=== PATIENT | male | born 1945 | race Caucasian/White ===

== ENCOUNTER 2020-09-05 10:28 | Observation (INO) | payer MEDICARE, SELFPAY ==
[2020-09-05] VITALS (9 sets, daily range): BP systolic 163–199; BP diastolic 53–122; PULSE 63–107; RESP 18–20; TEMP 36.1–36.7; O2SAT 96–100; BMI 26.5; BMI 26.4
--- NOTE | ~2020-09-05 | CT_ITS ---
EXAMINATION: CT abdomen pelvis wo con DATE: 09/05/2020 11:35 INDICATION: Hematuria TECHNIQUE: Computed tomography (CT) of the abdomen and pelvis was performed without intravenous contr ast. The dose-length product was 609.56 mGy-cm. Automated exposure control and iterative reconstructi on technique were employed. COMPARISON: None. FINDINGS: Lung bases unremarkable. Borderline heart size. No significant pleural or pericardial effus ion. There are multiple left renal cysts. There is a large complex right renal mass containing coarse internal calcifications measuring 10.2 cm craniocaudal x9.3 cm transverse x6.4 cm AP. This mass is c ompatible with renal cell carcinoma until proven otherwise. There is a questionable 4.5 cm high density mass posterior base of the bladder, best seen on the sagi ttal reconstruction images, suspicious for transitional cell carcinoma. Mild prostate enlargement. No hydronephrosis or ureteral stone identified. Nonobstructive bowel gas pattern. The liver, spleen, pancreas, adrenal glands are unremarkable. There is moderate atherosclerosis witho ut aneurysm. Moderate lumbar spondylosis. No osteolytic or osteoblastic lesions. IMPRESSION: 1. Complex 10.2 cm right renal mass, compatible with renal cell carcinoma until proven otherwise. Rec [facility] urology consultation. 2: Possible 4.5 cm bladder mass. Consider transitional cell carcinoma. Reviewed, dictated and finalized at location A. NING HANDYMAN IMPRESSION: 1. Complex 10.2 cm right renal mass, compatible with renal cell carcinoma until proven otherwise. Recommend urology consultation. 2: Possible 4.5 cm bladder mass. Consider transitional cell carcinoma.
--- NOTE | ~2020-09-05 | CT_ITS ---
EXAMINATION: CT chest abdomen pelvis w con DATE: 09/05/2020 19:07 INDICATION: Renal mass TECHNIQUE: Computed tomography (CT) of the chest, abdomen, and pelvis was performed with 100 mL Omnip aque-350 intravenous contrast. Automated exposure control and iterative reconstruction technique were employed. The dose-length product was 876.95 mGy-cm. COMPARISON: Noncontrast CT of the abdomen and pelvis dated 09/05/2020 FINDINGS: CHEST CT: 8 mm subpleural nodule with ill-defined margins in the superior segment of the left lower lobe. Mild dependent atelectasis in the bilateral lower lobes. No other suspicious pulmonary nodules, pulmonary edema or pleural effusion. Cardiomegaly. Atherosclerotic coronary artery calcifications. No pericardi al effusion. Thoracic aorta is normal in caliber with no dissection. No pathologically enlarged thora cic lymphadenopathy. Mild thoracic spondylosis. No suspicious lytic or blastic bone lesions. ABDOMEN/PELVIS CT: Liver, gallbladder, pancreas and bilateral adrenal glands are normal. Splenic calcific calcification is consistent with old granulomatous disease. 4 simple appearing nonenhancing left renal cysts the la rgest measuring 6.0 cm. 10.4 x 6.4 x 11.4 cm heterogeneously enhancing exophytic mass with coarse internal calcifications and lobular margins which arises from the anterior aspect of the lower pole of the right kidney consiste nt with renal cell carcinoma. There is moderate perinephric stranding surrounding the right kidney al lula with multiple collateral draining pararenal veins which extend to the right gonadal vein. There i s a small accessory right renal artery extending to the lower pole of the right kidney as well as ear ly bifurcation near the origin of the dominant right renal artery. Similarly there is a small accesso ry right renal vein draining the lower pole and extending to the inferior vena cava one side the acce ssory renal artery. Gas and a Villarreal catheter within the decompressed bladder. Bowels including the appendix are normal. S mall bilateral fat-containing inguinal hernias. No free intraperitoneal gas or fluid. No pathological ly enlarged abdominal or pelvic lymphadenopathy. Mild to moderate lower lumbar spondylosis. A few sma ll sclerotic bone islands about the right acetabulum and one in the left femoral head. No suspicious lytic or blastic bone lesions. IMPRESSION: 1. 11.4 cm enhancing renal mass consistent with renal cell carcinoma. 2. Indeterminate 8 mm left lower lobe nodule which could be acute infectious/inflammatory, more chron ic granulomatous disease or primary lung cancer. Although somewhat given the absence of other lesions suspicious for metastatic disease are identified in the chest, abdomen or pelvis, the differential w ould include metastatic disease. In the absence of a known primary malignancy the typical recommendat ion would be for follow-up noncontrast chest CT in 3-6 months however given the presumptive renal kp l carcinoma would consider PET/CT for further evaluation and to assess for any other potential metast ases. Reviewed, dictated and finalized at location A. N MASTER IMPRESSION: 1. 11.4 cm enhancing renal mass consistent with renal cell carcinoma. 2. Indeterminate 8 mm left lower lobe nodule which could be acute infectious/in flammatory, more chronic granulomatous disease or primary lung cancer. Although somewhat given the absence of other lesions suspicious for metastatic disease are identified in the chest, abdomen or pelvis, the differential would include metastatic disease. In the absence of a known primary malignancy the typical re commendation would be for follow-up noncontrast chest CT in 3-6 months however given the presumptive renal cell carcinoma would consider PET/CT for further e
--- NOTE | 2020-09-05 11:03 | ECG_ITS ---
Measurements Intervals [place] Rate: 113 P: 3 CA: 152 QRS: -34 QRSD: 92 T: 5 QT: 334 QTc: 459 Interpretive Statements SINUS TACHYCARDIA FREQUENT VENTRICULAR PREMATURE COMPLEXES LEFT AXIS DEVIATION BORDERLINE R WAVE PROGRESSION, ANTERIOR LEADS BORDERLINE T WAVE ABNORMALITY- INFERIOR LEADS BASELINE ARTIFACT- I, II, III, AVR, AVF, V1, V3-V6 ABNORMAL ECG Electronically Signed On 09-05-2020 14:33:23 SALES DEVELOPMENT ASSOCIATE by Randolph Camp D.O.
[2020-09-05] MEDS: LORazepam INJ (*CRX) 2 MG/ML VIAL 1 MG IV PUSH (11:19)
[2020-09-05] MEDS: SODIUM CHLORIDE 0.9% IV 1,000 ML 999 ML IV CONT (11:19)
[2020-09-05 11:24] LABS: Basophils Percent Auto 0.2 % (0.2-1.2); Eosinophils Percent Auto 0.1 % (0-4.4); Hematocrit 48.4 % (42.0-52.0); Hemoglobin 16.9 g/dL (14.0-18.0); Immature Granulocyte Absolute 0.05 K/mm3 (0.00-0.031); Immature Granulocyte Percent A 0.4 % (0-0.5); Lymphocytes Percent Auto 10.4 % (18.3-44.2); Mean Corpuscular HGB Conc 34.9 g/dl (32-36); Mean Corpuscular Hemoglobin 32.7 pg (26-34); Mean Corpuscular Volume 93.6 fl (80-100); Monocytes Absolute Auto 0.8 K/mm3 (0.1-0.6); Monocytes Percent Auto 6.6 % (2.6-8.5); Neutrophils Absolute Auto 9.6 K/mm3 (1.3-6.7); Neutrophils Percent Auto 82.3 % (45.5-73.1); Platelet Count Result 303 k/mm3 (150-375); Red Blood Count 5.17 M/mm3 (4.6-6.20); Red Cell Distribution Width 11.6 % (11.5-14.5); White Blood Count 11.6 K/mm3 (4.5-10.0)
[2020-09-05 11:33] LABS: Prothrombin Time 13.4 Seconds (11.1-14.7)
[2020-09-05 11:34] LABS: Partial Thromboplastin Time 32.6 SECONDS (22.3-36.8)
[2020-09-05 11:38] LABS: Alanine Aminotransferase 26 U/L (4-50); Albumin Level 4.5 g/dL (3.5-5.1); Alkaline Phosphatase 95 U/L (38-126); Anion Gap 13 mmol/L (8-16); Aspartate Amino Transferase 38 U/L (17-59); Bilirubin,Total 1.2 mg/dL (0.2-1.3); Blood Urea Nitrogen 13 mg/dL (9-20); Calcium 9.2 mg/dL (8.4-10.2); Carbon Dioxide 24 mmol/L (22-30); Chloride 101 mmol/L (98-107); Estimated CRCL calculation 72 ml/min; Estimated Glomerular Filt Rate > 60; Glucose 143 mg/dL (75-110); Lipase 35 U/L (23-300); Potassium 3.7 mmol/L (3.4-5.0); Sodium 138 mmol/L (137-145)
[2020-09-05 11:39] LABS: Creatine Kinase 350 U/L (55-170)
[2020-09-05] MEDS: LABETALOL HCL INJ 100 MG/20 ML VIAL 20 MG IV PUSH (11:59)
[2020-09-05 12:20] LABS: Add Urine Microscopic? YES; Appearance Urine Cloudy (Clear); Bilirubin Urine Negative (Negative); Blood Urine 3+ (Negative); Color Urine Yellow (Yellow); Glucose Urine UA Negative (Negative); Ketones Urine Trace mg/dL (Negative); Leukocyte Esterase Ur Negative LEU/UL (Negative); Nitrate Urine Negative (Negative); Protein Urine 2+ mg/dL (Negative); RBC Urine >75 /hpf (0-2); Specific Grav Ur 1.017 (1.001-1.035); Urobilinogen Urine Negative mg/dL (<2.0); WBC Urine >75 /hpf
--- NOTE | 2020-09-05 14:06 | ED.GENADULT ---
HPI - General Adult General Chief complaint: Urogenital-Male <Alessandro García PA-C - Last Filed: 09/05/20 14:09> Stated complaint: hematuria <Alessandro García PA-C - Last Filed: 09/05/20 14:09> Time Seen by Provider: 09/05/20 10:56 <Alessandro García PA-C - Last Filed: 09/05/20 14:09> Source: patient and family <Alessandro García PA-C - Last Filed: 09/05/20 14:09> Mode of arrival: ambulatory <Alessandro García PA-C - Last Filed: 09/05/20 14:09> Limitations: no limitations <Alessandro García PA-C - Last Filed: 09/05/20 14:09> History of Present Illness HPI narrative: Patient 74-year-old male who presents to emergency department for evaluation of hematuria some bladder discomfort and difficulty with urination that started last night patient presents with continued dysuria hematuria patient denies any similar occurrence in the past injury trauma or recent illness has not taken anything for his symptoms is anxious noting he was up all night and discomfort <Alessandro García PA-C - Last Filed: 09/05/20 14:09> Related Data Home medications: Home Medications Medication Instructions Recorded Confirmed No Home Medications 09/05/20 09/05/20 <Alessandro García PA-C - Last Filed: 09/05/20 14:09> Allergies/adverse reactions: Allergies Allergy/AdvReac Type Severity Reaction Status Date / Time No Known Allergies Allergy Verified 09/05/20 11:09 <Alessandro García PA-C - Last Filed: 09/05/20 14:09> Review of Systems Review of Systems: All systems reviewed & are unremarkable except as noted in HPI and below <Alessandro García PA-C - Last Filed: 09/05/20 14:09> PMFSH Social History Social History: Social History (Updated 09/05/20 @ 14:06 by Alessandro García PA-C) Smoking status: Never smoker Gender identity (if verbalized by the patient): Male <Alessandro García PA-C - Last Filed: 09/05/20 14:09> Exam Narrative: Exam Narrative: GENERAL: Well-appearing, well-nourished, and in no acute distress. HEAD: Normocephalic, atraumatic. EYES: PERRLA and EOMI. ENT: Nares clear, no rhinorrhea or epistaxis. Mucous membranes moist. CHEST: Clear to auscultation. No respiratory distress. No wheezes rales or rhonchi HEART: Regular rate and rhythm. No murmur heard. Normal peripheral pulses. ABDOMEN: Soft, suprapubic tenderness to palpation, nondistended EXTREMITIES: Normal range of motion. No edema. SKIN: Warm, dry, no rash. NEURO: No focal deficits. Alert and oriented x3. PSYCH: Normal mood and affect. <Alessandro García PA-C - Last Filed: 09/05/20 14:09> Course Course Emergency Course: Patient was evaluated in the emergency department found to have bladder and kidney mass will be placed in hospital for urological evaluation patient's blood pressure improved with labetalol was hydrated and also given urinary tract infection coverage with Rocephin patient hemodynamically stable resting comfortably agreeing to stay in hospital <Alessandro García PA-C - Last Filed: 09/05/20 14:09> BLASTING COAL MINER/PA Physician Supervision For this patient encounter, I reviewed the BLASTING COAL MINER or PA documentation, treatment plan, and medical decision making; and I had [id number] time with this patient. <Liliana Lay MD - Last Filed: 09/05/20 14:37> Consultations Consultation #1: Discussed case with urology who will consult on patient as well as the hospitalist who has agreed to accept the patient <Alessandro García PA-C - Last Filed: 09/05/20 14:09> Date: 09/05/20 <JULIENNE Hernandez Last Filed: 09/05/20 14:09> Time: 14:07 <JULIENNE Hernandez Last Filed: 09/05/20 14:09> Vital Signs Vital signs: Vital Signs Temperature 36.6 C 09/05/20 10:50 Pulse Rate 63 09/05/20 10:50 Respiratory Rate 18 09/05/20 10:50 Blood Pressure 194/122 H 09/05/20 10:50 Pulse Oximetry 100 09/05/20 10:50 Temperature 36.6 C 09/05/20 10:50 Pulse Rate 7
--- NOTE | 2020-09-05 14:52 | WPDURCON ---
Assessment and Plan Assessment and plan (1) Hematuria: Code(s): R31.9 - Hematuria, unspecified Status: Acute Assessment and Plan: 74 yo male with painless GH, ? bladder mass and CT concerning for possible 10 cm right RCC #1 GH likely from large renal mass plan to re-image, stage chest We will send urine cytology he will need cystoscopy to assess bladder, however I suspect the bladder mass is just dependent blood products in the bladder We will continue CBI and titrate to clear Keep NPO I will inform my associates of his admission. Thank you for the consultation if any questions or concerns arise please don't hesitate to contact me (2) Bladder mass: Code(s): N32.89 - Other specified disorders of bladder Status: Acute (3) Kidney mass: Code(s): N28.89 - Other specified disorders of kidney and ureter Status: Acute Assessment and Plan: Plan to image with contrast to assess or infiltrative mass and evaluate IVC/vasculature He will need staging with Chest CT Pt understands that this is likely a kidney cancer and he will likely need nephrectomy when acute issues resolve Urology Consult Note HPI Date Seen: 09/05/20 Requesting Physician: Siddharth Em MD Primary Care Provider: US MARKETING DIRECTOR PHYSICIAN Consult Narrative Narrative: John Dickey is a 74 year old male with no significant medical history who presented to the ED with 24 hour history of painless gross hematuria. He was passing small clots. No trauma. Nonsmoker. No history of prior hematuria or UTI. 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 He is visiting from [place]. he denies prior irritative or obstructive symptoms. Takes no blood thinners. He does drink ETOH. He had CT of A/P which shows large 10cm right renal mass and ? mass in bladder. 3 way braden was inserted and CBI was initiated which cleared his urine. Review of Systems Constitutional: Constitutional: Reports no additional constitutional complaints, Denies fever(s), Denies snoring and Denies weakness Eyes: Eyes: Reports no additional eye complaints ENT: Reports system reviewed and no additional complaints, except as documented, Denies dysphagia, Denies dizziness, Denies dry mouth and Denies ear discharge Respiratory: Respiratory: Reports no additional respiratory complaints, Denies hemoptysis, Denies snoring and Denies wheezing Gastrointestinal: Gastrointestinal: Reports as per HPI, Reports no additional gastrointestinal complaints, Denies dysphagia, Denies loose stools and Denies nausea Genitourinary: Genitourinary: Reports no additional male genitourinary complaints and Reports as per HPI Musculoskeletal: Musculoskeletal: Reports no additional musculoskeletal complaints and Reports as per HPI Integumentary/Breasts: Skin/Breast: Reports system reviewed and no additional complaints, except as docu and Reports as per HPI Neurologic: Reports system reviewed and no additional complaints, except as documented, Reports as per HPI, Denies confusion, Denies dizziness, Denies memory loss and Denies weakness Psychiatric: Psychiatric: Reports no additional psychiatric complaints, Reports as per HPI, Denies confusion, Denies memory loss and Denies mood swings Endocrine: Endocrine: Reports no additional endocrine complaints Hematologic/Lymphatic: Hematologic/Lymphatic: Reports no additional hematologic/lymphatic complaints and Reports as per HPI Allergic/Immunologic: Allergic/Immunologic: Reports no additional allergic/immunologic complaints, Reports as per HPI and Denies wheezing PMFSH Social History Social History (Updated 09/05/20 @ 14:06 by Alessandro García PA-C) Smoking status: Never smoker Gender identity (if verbalized by the patient): Male Meds Home Medications and Allergies Home Medications Medication Instructions Recorded Confirmed Type No Home Medications 09/05/20 09/05/20 History Allergies Allergy/AdvReac T
--- NOTE | 2020-09-05 14:57 | PC.NURSE ---
This patient, John Dickey, was admitted to Medical Room 341-01. Patient/family oriented to hospital policies and general routines including ID bracelet, bed and alarms, visiting hours, pain management, procedures, bathroom and other care routines, personal items, smoking policy, room service/diet, and visiting hours. Information on how to activate the Rapid Response Team has been discussed. Patient/Family are encouraged to report perceived risks to care and to ask questions if they do not understand what they are told or what they should do.
[2020-09-05] MEDS: LACTATED RINGERS 1,000 ML 125 ML IV CONT ×2 (15:30→23:34)
--- NOTE | 2020-09-05 17:43 | PM.IMHP ---
H&P: HPI History of Present Illness Date/Time: 09/05/20 17:43 Chief complaint: Hematuria/bladder mass/kidney mass/uti Narrative: John Dickey is a 74 year old male who has no past medical history. The patient stated that he has not had any kidney problems or bladder problems. He said when before he turned 69 had his prostate checked and it was okay. He is not on any medication for a any medical problems. The patient stated that yesterday he was having difficulty urinating. He said he had to push on his suprapubic area to get the urine to come out. Of hematuria and some discomfort difficulty urinating. He has not had any injury or trauma. He is pretty anxious when he came to the emergency room. His blood pressure initially was 194/122. And it did come down to 163/97. The patient was given labetalol in the emergency room. Urology has been consulted has already seen the patient. Was read by radiology is a complex 10.2 cm right renal mass, compatible with renal cell carcinoma until proven otherwise. Recommend urology consult. Possible 4.5 cm bladder mass. Consider transitional cell carcinoma. The patient is quite anxious about things., he was given Ativan, Rocephin and labetalol. Patient is being admitted into observation status on date of service 09/05/2020 Review of Systems Review of Systems: All systems reviewed & are unremarkable except as noted in HPI and below Constitutional: Constitutional: Reports as per HPI and Reports no additional constitutional complaints Eyes: Eyes: Reports as per HPI and Reports no additional eye complaints ENT: Reports system reviewed and no additional complaints, except as documented and Reports Normal hearing present Cardiovascular: Cardiovascular: Reports no additional cardiovascular complaints Respiratory: Respiratory: Reports no additional respiratory complaints and Reports no additional respiratory complaints Gastrointestinal: Gastrointestinal: Reports as per HPI and Reports no additional gastrointestinal complaints Musculoskeletal: Musculoskeletal: Reports no additional musculoskeletal complaints Integumentary/Breasts: Skin/Breast: Reports system reviewed and no additional complaints, except as docu and Reports as per HPI Neurologic: Reports system reviewed and no additional complaints, except as documented, Reports as per HPI and Reports Normal hearing present Psychiatric: Psychiatric: Reports no additional psychiatric complaints and Reports as per HPI Endocrine: Endocrine: Reports no additional endocrine complaints Hematologic/Lymphatic: Hematologic/Lymphatic: Reports no additional hematologic/lymphatic complaints Allergic/Immunologic: Allergic/Immunologic: Reports no additional allergic/immunologic complaints [facility] Surgical History Surgical History (Updated 09/05/20 @ 17:47 by Brisa Betancur NP) History of colonoscopy S/P tonsillectomy and adenoidectomy Family History Family History (Updated 09/05/20 @ 17:47 by Brisa Betancur NP) Father Industrial accident an industrial accident Other No active medical problems Social History Social History (Updated 09/05/20 @ 17:48 by Brisa Betancur NP) Social History: The patient has 1 biological daughter. He is retired. He has maybe 3 or 4 glasses of beer a week. He goes the [facility] to watch football game on Sundays. Lifelong nonsmoker. He does have a significant other. No marijuana or illicit drugs. The patient desires to be a full code and does not have a durable power divorce attorney in writing but would like for his daughter do be his power divorce attorney. He is . He is initially from [place]. Smoking status: Never smoker Alcohol intake: current Drinks per week: 6 Substance use: never Gender identity (if verbalized by the patient): Male Spiritual care concerns: No Meds Home Medications and Allergies Home Medications Medication Instructions Recorded Confirmed Type No Cleo
[2020-09-05 19:20] LABS: Hematocrit 47.9 % (42.0-52.0); Hemoglobin 16.6 g/dL (14.0-18.0)
[2020-09-05] MEDS: hydrALAZINE HCL 20 MG/ML VIAL 10 MG IV PUSH (20:56)
[2020-09-05] MEDS: FAMOTIDINE 20 MG/2 ML VIAL IV PUSH (20:56)
[2020-09-05 23:32] LABS: Hematocrit 45.7 % (42.0-52.0); Hemoglobin 15.9 g/dL (14.0-18.0)
[2020-09-06 05:36] VITALS: BP 174/81; PULSE 78; RESP 18; TEMP 36.7; O2SAT 97
[2020-09-06 05:48] LABS: Basophils Percent Auto 0.2 % (0.2-1.2); Eosinophils Percent Auto 0.1 % (0-4.4); Hematocrit 47.1 % (42.0-52.0); Hemoglobin 16.3 g/dL (14.0-18.0); Immature Granulocyte Absolute 0.08 K/mm3 (0.00-0.031); Immature Granulocyte Percent A 0.6 % (0-0.5); Lymphocytes Absolute Auto 1.13 K/mm3 (0.9-3.2); Lymphocytes Percent Auto 7.8 % (18.3-44.2); Mean Corpuscular HGB Conc 34.6 g/dl (32-36); Mean Corpuscular Hemoglobin 32.7 pg (26-34); Mean Corpuscular Volume 94.4 fl (80-100); Mean Platelet Volume 10.1 fl (7.4-10.4); Monocytes Absolute Auto 1.2 K/mm3 (0.1-0.6); Monocytes Percent Auto 8.3 % (2.6-8.5); Neutrophils Absolute Auto 12.1 K/mm3 (1.3-6.7); Platelet Count Result 294 k/mm3 (150-375); Red Blood Count 4.99 M/mm3 (4.6-6.20); Red Cell Distribution Width 11.7 % (11.5-14.5); White Blood Count 14.5 K/mm3 (4.5-10.0)
[2020-09-06 06:06] LABS: Alanine Aminotransferase 25 U/L (4-50); Albumin Level 4.2 g/dL (3.5-5.1); Alkaline Phosphatase 89 U/L (38-126); Anion Gap 11 mmol/L (8-16); Aspartate Amino Transferase 37 U/L (17-59); Bilirubin,Total 1.5 mg/dL (0.2-1.3); Blood Urea Nitrogen 12 mg/dL (9-20); CRP 1.1 mg/dL (<1.0); Calcium 9.1 mg/dL (8.4-10.2); Carbon Dioxide 24 mmol/L (22-30); Chloride 103 mmol/L (98-107); Estimated CRCL calculation 66 ml/min; Estimated Glomerular Filt Rate > 60; Glucose 130 mg/dL (75-110); Lactate Dehydrogenase 285 U/L (313-618); Potassium 3.9 mmol/L (3.4-5.0); Sodium 138 mmol/L (137-145)
--- NOTE | 2020-09-06 06:21 | WPDUROPN2 ---
Progress Note: A&P Assessment and Plan (1) Hematuria: Code(s): R31.9 - Hematuria, unspecified Status: Acute (2) Kidney mass: Code(s): N28.89 - Other specified disorders of kidney and ureter Status: Acute Assessment and Plan: CT-chest/abd/pelvis c/w 12cm right renal cell ca. with indeterminate 8mm pulmonary nodule. Additional staging with PET/CT should be considered at some point. Hematuria much improved this morning. Will see if we can get cystoscopy scheduled in OR today. Eventually, pt. will likely return home to [place] for definitive mgmt. of renal mass. Subjective Subjective Date/Time Seen: 09/06/20 06:21 Comfortable, urine clear on slow CBI Review of Systems Cardiovascular: Cardiovascular: Denies chest pain, Denies lightheadedness, Denies palpitations and Denies dyspnea Respiratory: Respiratory: Denies dyspnea Gastrointestinal: Gastrointestinal: Denies diarrhea, Denies nausea and Denies vomiting Genitourinary: Genitourinary: Denies hematuria and Denies dysuria Endocrine: Endocrine: Denies palpitations Exam Const: General: no acute distress Resp: Effort & Inspection: normal respiratory effort GI: Inspection: non-distended GI Palp: No abdominal tenderness and No Guarding due to palpation present (GI) Auscultation: normal bowel sounds Objective Data Vital Signs Vital Signs: Vital Signs - 24 hr 09/05/20 10:50 09/05/20 12:00 09/05/20 12:35 Temperature 98 F Pulse Rate 63 107 H 72 Respiratory Rate 18 19 18 Blood Pressure 194/122 H 199/116 H 170/96 H Pulse Oximetry 100 97 98 09/05/20 12:51 09/05/20 14:43 09/05/20 15:17 Temperature 97.0 F L Pulse Rate 74 76 76 Respiratory Rate 20 20 20 Blood Pressure 163/97 H 172/107 H 188/78 H Pulse Oximetry 97 99 100 09/05/20 16:00 09/05/20 18:24 09/05/20 19:37 Temperature 98.1 F Pulse Rate 89 86 Respiratory Rate 18 Blood Pressure 166/53 H 174/98 H Pulse Oximetry 96 09/06/20 05:36 Temperature 98.1 F Pulse Rate 78 Respiratory Rate 18 Blood Pressure 174/81 H Pulse Oximetry 97 Intake/Output Intake/Output: Intake & Output 09/03/20 09/04/20 09/05/20 09/06/20 23:59 23:59 23:59 23:59 Intake Total 2050 200 Output Total 7200 Balance -5150 200 Meds/Results Medications: Active Medications Generic Name Dose Route Start Last Admin Trade Name Freq PRN Reason Stop Dose Admin Famotidine 20 mg 09/05/20 21:00 09/05/20 20:56 Famotidine 20 Mg/2 Ml Vial IV PUSH 20 mg Q12HR GARO Administration Hydralazine HCl 10 mg 09/05/20 17:41 09/05/20 20:56 Hydralazine Hcl 20 Mg/Ml Vial IV PUSH 10 mg Q8H PRN Administration Blood Pressure - High Acetaminophen 1,000 mg in 100 mls @ 400 mls/hr 09/05/20 14:03 Ofirmev 1,000 Mg Ivpb IVPB 09/06/20 14:04 Q6H PRN Mild Pain (1-3) or Fever Lactated Ringer's 1,000 mls @ 125 mls/hr 09/05/20 14:05 09/05/20 23:34 Lr - Lactated Ringers Iv IV CONT 125 mls/hr .Q8H GARO Administration Lorazepam 0.5 mg 09/05/20 17:37 Lorazepam Inj (*Crx) 2 Mg/Ml Vial IV PUSH Q6H PRN Anxiety Ondansetron HCl 4 mg 09/05/20 14:03 Ondansetron Inj 4 Mg/2 Ml Vial IV PUSH Q4H PRN Nausea Radiology Results: ITS Impressions Abdomen/Pelvis CT 09/05/20 11:39 IMPRESSION: 1. Complex 10.2 cm right renal mass, compatible with renal cell carcinoma until proven otherwise. Recommend urology consultation. 2: Possible 4.5 cm bladder mass. Consider transitional cell carcinoma. Chest/Abdomen/Pelvis CT 09/05/20 19:46 IMPRESSION: 1. 11.4 cm enhancing renal mass consistent with renal cell carcinoma. 2. Indeterminate 8 mm left lower lobe nodule which could be acute infectious/inflammatory, more chronic granulomatous disease or primary lung cancer. Although somewhat given the absence of other lesions suspicious for metastatic disease are identified in the chest, abdomen or pelvis, the differential would include
--- NOTE | 2020-09-06 08:15 | PM.PROC ---
Procedure Note - Detailed Date of procedure: 09/06/20 Pre-op diagnosis: Hematuria/bladder mass/kidney mass/uti Post-op diagnosis: same Procedure performed: Flexible cystoscopy Description of procedure: Informed consents obtained. His Villarreal catheter is removed. I performed flexible cystoscopy. He had moderate trabeculation. There was some reddened areas with catheter-related edema. There are a few small less than 1 cm mobile clots. There was no bladder tumors noted. Prostate showed some lateral lobes. No median lobe. There were no other bladder abnormalities. Anesthesia: none Surgeon: Vincent Friedman MD Estimated blood loss (mL): 0 Drains: No Packing: No Pathology: none sent Complications: No immediate complications Condition: stable
[2020-09-06] MEDS: FAMOTIDINE 20 MG/2 ML VIAL IV PUSH (08:44)
[2020-09-06] MEDS: LACTATED RINGERS 1,000 ML 125 ML IV CONT (08:46)
[2020-09-06 11:45] LABS: Hemoglobin 15.5 g/dL (14.0-18.0)
--- NOTE | 2020-09-06 11:59 | PC.NURSE ---
Radiology disc sent home with patient.
--- NOTE | 2020-09-07 13:58 | PM.DS ---
DS: Admitting Diagnosis Admitting Diagnosis Admitting Diagnosis: Hematuria/bladder mass/kidney mass/uti DS: Discharge Diagnosis Discharge Diagnosis (1) Kidney mass: Code(s): N28.89 - Other specified disorders of kidney and ureter Status: Acute Assessment and Plan: build a mass in the right kidney measuring 10.2 x 11.3 cm suggestive of renal cell carcinoma.. Patient was seen by urology and will follow-up with urologist in [place] where he lives. (2) Bladder mass: Code(s): N32.89 - Other specified disorders of bladder Status: Acute Assessment and Plan: CT scan revealed what looked to be a 4.5 cm bladder mass, after continuous bladder irrigation cystoscopy was performed and revealed no mass chest few small clots which were mobile suggesting the regional masses probably a larger clock (3) Anxiety: Code(s): F41.9 - Anxiety disorder, unspecified Status: Acute Assessment and Plan: mild anxiety on admission treated with p.r.n. lorpam (4) Hematuria: Code(s): R31.9 - Hematuria, unspecified Status: Acute Assessment and Plan: hemoglobin remained stable. With continues bladder irrigation hematuria subsided and as above cystoscopy revealed no lesions in the bladder suggesting the hematuria was from the renal mass urine culture was no growth (5) Bladder obstruction: Code(s): N32.0 - Bladder-neck obstruction Status: Acute Assessment and Plan: felt secondary to clotting from the hematuria. No obstruction seen on cystoscopy and after CBI and Villarreal removal patient had no difficulty urinating (6) Hypertension: Code(s): I10 - Essential (primary) hypertension Status: Acute Assessment and Plan: P.r.n. hydralazine. patient has a history of hypertension and had discontinued his oral medications due to joint discomfort. Suggested he follow up again with his primary for further evaluation DS: Summary Hospital Course Hospital Course: 74-year-old hypertensive male admitted with hematuria and difficulty urinating period. CT revealed right renal mass and possible bladder mass. Cystoscopy after continues bladder irrigation revealed no mass with mild residual multiple clots. He had no further hematuria and no difficulty voiding after Villarreal catheter removed. Patient was seen by Nephrology and instructed to follow-up with a urologist in his home state of [place] he was given a disc of his imaging and reports to accompanying him. Urine culture was no growth. Time Spent with Patient Time attestation: Total time spent providing and/or coordinating discharge services:35 minutes Exam Narrative: Exam Narrative: condition on discharge blood pressure 170/80 pulse is 78 saturating 97% on room air afebrile lungs clear CV regular rate rhythm no murmurs abdomen soft nontender bowel sounds normal active extremities without edema distal pulses 2+ neuro alert no focal deficits up in about with Villarreal catheter removed and voiding without difficulty and no gross hematuria, stable for discharge home Discharge Plan Discharge Attending physician on discharge: Siddharth Em Consulting providers: Em Eisenberg ; Cisco Zapata ; Alessandro García Discharging Clinician: Siddharth Em Patient Disposition: Home, Self-Care Activity: as tolerated Diet: low sodium Discharge Instructions: follow up with your primary in [place] for urology referal Patient Instructions: Antibiotic Form, Hematuria (ED), Cystoscopy (DC) Stand Alone Forms: General Discharge Information Follow-up/Referrals: primary [Other] - Follow Up with Primary Dr Discharge Medications: No Action No Home Medications RF: 0 Date of admission: 09/05/20 14:31 Primary Care Provider: PHYSICIAN,SKIP PITMAN Admitting Provider: Siddharth Em Attending physician on admission: Siddharth Em Condition: Improved Qu
== END 2020-09-06 11:35 | disposition home or self-care (01) ==
LOC: ANHED 14:09 → ANH3MED 14:42
PROVIDERS: Emergency Medicine Emergency Medical Services; Nurse Practitioner; Admitting Provider Internal Medicine; Emergency Provider Emergency Medicine; Visit Provider Internal Medicine
DX: R31.9 Hematuria, unspecified (principal); N28.89 Other specified disorders of kidney and ureter; N32.89 Other specified disorders of bladder; N32.0 Bladder-neck obstruction; I10 Essential (primary) hypertension; R91.8 Other nonspecific abnormal finding of lung field
CPT/HCPCS: 52000; 36415; 71260; 74176; 74177; 80053; 81001; 82550; 83615; 83690; 84443; 85014; 85018; 85025; 85610; 85730; 86140; 86850; 86900; 86901; 87086; 93005; 96361; 96365; 96375; 96376; 99285; G0378; J0360; J0696; J2060; J7030; J7120; Q9967

== ENCOUNTER 2020-09-09 10:56 | Emergency (ER) | payer MEDICARE, SELFPAY ==
--- NOTE | ~2020-09-09 | US_ITS ---
EXAMINATION: US pelvic limited DATE: 09/09/2020 12:07 INDICATION: Hematuria. Difficulty voiding. TECHNIQUE: Multiple transabdominal and endovaginal sonographic images of the pelvis were obtained. COMPARISON: None. FINDINGS: There is a 6 x 3.3 x 4.9 cm hypoechoic filling defect with irregular margins within the bladder. The lesion demonstrates no internal flow on color Doppler and changes position between the supine and lef t lateral decubitus imaging consistent with a mobile clot. Bladder is otherwise unremarkable with nor mal wall thickness and smooth mucosal contour. IMPRESSION: 1. 6 x 3.3 x 4.9 cm mobile clot within the bladder. Reviewed, dictated and finalized at location A. [facility] [employer]
[2020-09-09 11:04] VITALS: BP 164/110; PULSE 111; RESP 18; TEMP 36.1; O2SAT 98
[2020-09-09 12:26] LABS: Basophils Percent Auto 0.3 % (0.2-1.2); Eosinophils Percent Auto 0.1 % (0-4.4); Hematocrit 44.7 % (42.0-52.0); Hemoglobin 15.8 g/dL (14.0-18.0); Immature Granulocyte Absolute 0.06 K/mm3 (0.00-0.031); Immature Granulocyte Percent A 0.4 % (0-0.5); Lymphocytes Absolute Auto 1.01 K/mm3 (0.9-3.2); Lymphocytes Percent Auto 6.5 % (18.3-44.2); Mean Corpuscular HGB Conc 35.3 g/dl (32-36); Mean Corpuscular Hemoglobin 32.4 pg (26-34); Mean Corpuscular Volume 91.6 fl (80-100); Monocytes Absolute Auto 1.5 K/mm3 (0.1-0.6); Monocytes Percent Auto 9.6 % (2.6-8.5); Neutrophils Percent Auto 83.1 % (45.5-73.1); Platelet Count Result 292 k/mm3 (150-375); Red Blood Count 4.88 M/mm3 (4.6-6.20); Red Cell Distribution Width 11.2 % (11.5-14.5); White Blood Count 15.6 K/mm3 (4.5-10.0)
[2020-09-09 12:37] LABS: Anion Gap 10 mmol/L (8-16); Blood Urea Nitrogen 14 mg/dL (9-20); Carbon Dioxide 27 mmol/L (22-30); Chloride 97 mmol/L (98-107); Estimated CRCL calculation 53 ml/min; Estimated Glomerular Filt Rate > 60; Glucose 130 mg/dL (75-110); Potassium 3.6 mmol/L (3.4-5.0); Sodium 134 mmol/L (137-145)
[2020-09-09 12:52] LABS: Add Urine Microscopic? YES; Appearance Urine Cloudy (Clear); Bilirubin Urine Negative (Negative); Blood Urine 3+ (Negative); Color Urine Red (Yellow); Glucose Urine UA Negative (Negative); Ketones Urine Negative (Negative); Leukocyte Esterase Ur Negative LEU/UL (Negative); Mucus Urine Heavy /lpf; Nitrate Urine Negative (Negative); Protein Urine 2+ mg/dL (Negative); RBC Urine >75 /hpf (0-2); Specific Grav Ur 1.008 (1.001-1.035); Urobilinogen Urine Negative mg/dL (<2.0); WBC Urine >75 /hpf
[2020-09-09] MEDS: LIDOCAINE HCL 2% GEL UROJET 10 ML PKG (12:56)
--- NOTE | 2020-09-09 13:42 | ED.GENADULT ---
HPI - General Adult General Chief complaint: Urogenital-Male Stated complaint: urinary retention Time Seen by Provider: 09/09/20 11:24 Source: patient, family and old records reviewed Mode of arrival: ambulatory Limitations: no limitations History of Present Illness HPI narrative: Patient 74-year-old male who presents with hematuria and dysuria that began over the last night had recent hospitalization found to have kidney mass patient was evaluated by urology sent home without a catheter and is now requesting to have 1 patient has not facilitated his follow-up with urology as he was still determining whether or not he was going to stay in [place] or return to [place] patient has now decided that he will stay in [place] and would like urology referral and catheter patient denies any fever chills nausea vomiting or other complaints and on arrival does not appear to be in distress or uncomfortable Related Data Allergies Allergy/AdvReac Type Severity Reaction Status Date / Time No Known Allergies Allergy Verified 09/09/20 11:07 Review of Systems Review of Systems: All systems reviewed & are unremarkable except as noted in HPI and below PMFSH Surgical History Surgical History History of colonoscopy S/P tonsillectomy and adenoidectomy Family History Family History (Updated 09/05/20 @ 17:47 by Brisa Betancur NP) Father Industrial accident an industrial accident Other No active medical problems Social History Social History Social History: The patient has 1 biological daughter. He is retired. He has maybe 3 or 4 glasses of beer a week. He goes the [employer] [employer] to watch football game on Sundays. Lifelong nonsmoker. He does have a significant other. No marijuana or illicit drugs. The patient desires to be a full code and does not have a durable power insurance attorney in writing but would like for his daughter do be his power insurance attorney. He is . He is initially from [place]. Smoking status: Never smoker Alcohol intake: current Drinks per week: 6 Substance use: never Gender identity (if verbalized by the patient): Male Spiritual care concerns: No Exam Narrative: Exam Narrative: GENERAL: Well-appearing, well-nourished, and in no acute distress. HEAD: Normocephalic, atraumatic. EYES: PERRLA and EOMI. ENT: Nares clear, no rhinorrhea or epistaxis. Mucous membranes moist. CHEST: Clear to auscultation. No respiratory distress. No wheezes rales or rhonchi HEART: Regular rate and rhythm. No murmur heard. Normal peripheral pulses. ABDOMEN: Soft, nontender, nondistended EXTREMITIES: Normal range of motion. No edema. SKIN: Warm, dry, no rash. NEURO: No focal deficits. Alert and oriented x3. PSYCH: Normal mood and affect. Course Course Emergency Course: Patient in the room no distress aware of case findings treatment plan diagnosis will be discharged home with Villarreal catheter aware of discussion with urology and plans to follow-up in 1 week. Patient will be placed on antibiotics. Patient hemodynamically stable ABCs intact and stable and given reasons to return Consultations Consultation #1: Discussed case with urology who will follow the patient outpatient this in 1 week would like Villarreal catheter left in place and to be treated with antibiotics with urine culture Date: 09/09/20 Time: 13:47 Vital Signs Vital signs: Vital Signs Temperature 97.0 F L 09/09/20 11:04 Pulse Rate 111 H 09/09/20 11:04 Respiratory Rate 18 09/09/20 11:04 Blood Pressure 164/110 H 09/09/20 11:04 Pulse Oximetry 98 09/09/20 11:04 Temperature 97.0 F L 09/09/20 11:04 Pulse Rate 111 H 09/09/20 11:04 Respiratory Rate 18 09/09/20 11:04 Blood Pressure 164/110 H 09/09/20 11:04 Pulse Oximetry 98 09/09/20 11:04 Medical Decision Making MDM Narrative Medical decision making narrative:
--- NOTE | 2020-09-09 14:30 | PC.NURSE ---
conversation had with pt and family regarding pts prior diagnosis of probable kidney cancer and need for immediate urology follow up. dr. harrison at bedside. [facility] to contact pt regarding scheduling nephrectomy.
[2020-09-09 14:43] VITALS: BP 155/86; PULSE 97; RESP 19; O2SAT 97
== END 2020-09-09 14:46 | disposition home or self-care (01) ==
PROVIDERS: Emergency Medicine Emergency Medical Services; Emergency Provider Emergency Medicine
DX: N39.0 Urinary tract infection, site not specified (principal); R31.9 Hematuria, unspecified
CPT/HCPCS: 36415; 76857; 80048; 81001; 85025; 87086; 99284

== ENCOUNTER 2020-10-08 15:31 | Emergency (ER) | payer MEDICARE, SELFPAY ==
[2020-10-08] VITALS (9 sets, daily range): BP systolic 99–152; BP diastolic 61–82; PULSE 97–115; RESP 16–22; TEMP 36.4; O2SAT 96–99
--- NOTE | 2020-10-08 15:58 | ECG_ITS ---
Measurements Intervals [place] Rate: 147 P: 39 SC: 154 QRS: -19 QRSD: 90 T: 67 QT: 299 QTc: 468 Interpretive Statements MULTIFOCAL ATRIAL TACHYCARDIA ATRIAL TRIPLETS AND ATRIAL PREMATURE COMPLEXES POOR R WAVE PROGRESSION, ANTERIOR LEADS BORDERLINE ST ABNORMALITY- HIGH LATERAL LEADS ABNORMAL ECG Electronically Signed On 10-09-2020 7:19:34 DISEASE AND INSECT CONTROL BOSS by Randolph Camp D.O.
[2020-10-08 16:16] LABS: Basophils Percent Auto 0.1 % (0.2-1.2); Eosinophils Absolute Auto 0.1 K/mm3 (0-0.3); Eosinophils Percent Auto 0.5 % (0-4.4); Hematocrit 43.7 % (42.0-52.0); Hemoglobin 15.2 g/dL (14.0-18.0); Immature Granulocyte Absolute 0.06 K/mm3 (0.00-0.031); Immature Granulocyte Percent A 0.5 % (0-0.5); Lymphocytes Percent Auto 7.9 % (18.3-44.2); Mean Corpuscular HGB Conc 34.8 g/dl (32-36); Mean Corpuscular Hemoglobin 32.5 pg (26-34); Mean Corpuscular Volume 93.4 fl (80-100); Monocytes Absolute Auto 1.1 K/mm3 (0.1-0.6); Monocytes Percent Auto 9.6 % (2.6-8.5); Neutrophils Absolute Auto 9.3 K/mm3 (1.3-6.7); Neutrophils Percent Auto 81.4 % (45.5-73.1); Platelet Count Result 317 k/mm3 (150-375); Red Blood Count 4.68 M/mm3 (4.6-6.20); Red Cell Distribution Width 11.4 % (11.5-14.5); White Blood Count 11.4 K/mm3 (4.5-10.0)
[2020-10-08 16:26] LABS: Anion Gap 9 mmol/L (8-16); Blood Urea Nitrogen 33 mg/dL (9-20); Calcium 8.5 mg/dL (8.4-10.2); Carbon Dioxide 26 mmol/L (22-30); Chloride 90 mmol/L (98-107); Estimated CRCL calculation 42 ml/min; Estimated Glomerular Filt Rate 49; Glucose 163 mg/dL (75-110); Potassium 4.3 mmol/L (3.4-5.0); Sodium 125 mmol/L (137-145)
[2020-10-08] MEDS: SODIUM CHLORIDE 0.9% IV 1,000 ML 999 ML IV CONT (17:00)
--- NOTE | 2020-10-08 17:19 | PC.NURSE ---
PT UNWILLING TO HAVE CT SCAN OF HEAD PROVIDER AWARE,NNO
--- NOTE | 2020-10-08 17:21 | ED.DIZZY ---
HPI - Dizziness General Chief Complaint: Syncope Stated Complaint: post op- n/v Time Seen by Provider: 10/08/20 16:47 Source: patient Mode of arrival: ambulatory Limitations: no limitations History of Present Illness HPI Narrative: Patient is a 69-year-old male complaining of dizziness that started last night. Patient states that he has not been eating or drinking well after the surgery due to soreness in his throat and hard time keeping anything down. Patient had nephrectomy done at [facility] 3 days ago. He attributes his soreness of his throat from the intubation. Patient states he is able to drink liquids but having a hard time eating solids due to nausea. Patient states that he could be dizzy because he has not been eating and drinking well, so when he called his surgeon, was advised to go to the emergency room for IV fluid treatment. Patient denies any near-syncope, syncopal episodes. Patient denies any headache, speech or visual disturbance, weakness, numbness, chest pain, shortness of breath, abdominal pain, vomiting, fever or chills. Related Data Allergies Allergy/AdvReac Type Severity Reaction Status Date / Time No Known Allergies Allergy Verified 09/09/20 11:07 Review of Systems Review of Systems: All systems reviewed & are unremarkable except as noted in HPI and below Constitutional: Constitutional: Denies body ache(s), Denies chills, Denies excessive sweating, Denies fatigue, Denies fever(s), Denies headache(s), Denies lethargy, Denies malaise, Denies weakness and Denies weight loss Eyes: Eyes: Denies blurry vision, Denies change in vision and Denies loss of vision ENT: Denies ear discharge, Denies headache(s), Denies lip swelling, Denies epistaxis, Denies nasal congestion, Denies neck pain, Denies throat swelling and Denies tongue swelling Cardiovascular: Cardiovascular: Denies chest pain, Denies chest pain at rest, Denies chest pain with activity, Denies diaphoresis, Denies rapid heart rate, Denies edema, Denies irregular heart rhythm, Denies lightheadedness, Denies palpitations, Denies dyspnea and Denies dyspnea on exertion Respiratory: Respiratory: Denies chest congestion, Denies cough, Denies hemoptysis, Denies dyspnea and Denies dyspnea on exertion Gastrointestinal: Gastrointestinal: Denies abdominal pain, Denies melena, Denies hematochezia, Denies diarrhea, Denies vomiting and Denies hematemesis Musculoskeletal: Musculoskeletal: Denies abnormal gait, Denies deformity, Denies joint swelling, Denies limited range of motion, Denies neck pain and Denies numbness Neurologic: Denies Abnormal speech present, Denies abnormal gait, Denies confusion, Denies headache(s), Denies focal weakness, Denies loss of vision, Denies numbness, Denies Other visual disturbances, Denies Sensory deficit (Neuro) and Denies weakness Psychiatric: Psychiatric: Denies confusion, Denies depression, Denies auditory hallucinations, Denies homicidal ideation and Denies suicidal ideation Endocrine: Endocrine: Denies cold intolerance, Denies excessive sweating, Denies fatigue, Denies heat intolerance and Denies palpitations Hematologic/Lymphatic: Hematologic/Lymphatic: Denies easy bleeding and Denies easy bruising Allergic/Immunologic: Allergic/Immunologic: Denies lip swelling, Denies throat swelling and Denies tongue swelling [facility] Surgical History Surgical History History of colonoscopy S/P tonsillectomy and adenoidectomy Family History Family History (Updated 09/05/20 @ 17:47 by Brisa Betancur NP) Father Industrial accident an industrial accident Other No active medical problems Social History Social History Social History: The patient has 1 biological daughter. He is retired. He has maybe 3 or 4 glasses of beer a week. He goes the [facility] [employer] to watch football game on Sundays. Lifelong nonsmoker. He
--- NOTE | 2020-10-08 19:30 | PC.NURSE ---
pt refusing to stay for LR infusion. informed and states if pt wants to leave it would be AMA. Discussed with pt the dangers of leaving AMA including but not limited to organ failure or . pt verbalized understanding and still voiced desire to leave AMA. AMA paperwork signed by pt, IV removed, and pt ambulatory out of ED.
== END 2020-10-08 19:30 | disposition left against medical advice (07) ==
PROVIDERS: Emergency Provider Emergency Medicine
DX: R42 Dizziness and giddiness (principal); I48.91 Unspecified atrial fibrillation; E87.1 Hypo-osmolality and hyponatremia; I47.1 Supraventricular tachycardia; I49.1 Atrial premature depolarization; R94.31 Abnormal electrocardiogram [ECG] [EKG]
CPT/HCPCS: 36415; 80048; 85025; 93005; 96360; 99284; J7030